=== PATIENT | female | born 1980 | race Caucasian/White ===

== ENCOUNTER 2017-08-25 23:24 | Emergency (ER) | payer MEDICAID ==
[~2017-08-25] VITALS: Ht 165.1 cm; Wt 85.0 kg
[2017-08-26 00:10] VITALS: BP 146/56
[2017-08-26] MEDS ORDERED: ACETAMINOPHEN 325MG TABLET PO ONE (01:15)
[2017-08-26 02:30] LABS: HEMATOCRIT. 34.1 % (36.0-48.0); HEMOGLOBIN. 11.6 g/dL (12.0-16.0); MEAN CORPUSCULAR HEMOGLOBIN 29.7 pg (28.0-32.0); MEAN CORPUSCULAR VOLUME 87.2 fL (81.0-99.0); MEAN PLATELET VOLUME 7.8 fl (7.4-10.4); PLATELET 278 x1000/uL (130-400); RED BLOOD CELL COUNT 3.91 mill/uL (4.2-5.4); RED CELL DISTRIBUTION WIDTH 12.5 % (11.6-14.6)
[2017-08-26 02:31] LABS: CHLORIDE 102 mEq/L (98-107)
[2017-08-26 02:33] LABS: HCG SCREEN POSITIVE
[2017-08-26 02:40] LABS: CARBON DIOXIDE 24 mEq/L (21-32)
[2017-08-26 04:13] LABS: PLATELET ESTIMATE NORMAL
[2017-08-26 04:58] LABS: CLARITY URINE CLEAR (CLEAR); COLOR URINE DARK YELLOW (YELLOW); GLUCOSE URINE NEGATIVE (NEGATIVE); KETONES URINE TRACE (NEGATIVE); LEUKOCYTE ESTERASE URINE NEGATIVE (NEGATIVE); NITRITE URINE NEGATIVE (NEGATIVE); OCCULT BLOOD URINE NEGATIVE (NEGATIVE); PROTEIN URINE NEGATIVE (NEGATIVE); SPECIFIC GRAVITY URINE 1.031 (1.005-1.030)
== END 2017-08-26 04:59 | disposition left against medical advice (07) ==
LOC: ER 23:27
DX: O26.891 Other specified pregnancy related conditions, first trimester (principal); R10.2 Pelvic and perineal pain; O99.341 Other mental disorders complicating pregnancy, first trimester; F32.9 Major depressive disorder, single episode, unspecified; F41.9 Anxiety disorder, unspecified; Z3A.08 8 weeks gestation of pregnancy; Z88.0 Allergy status to penicillin
CPT/HCPCS: 36415; 71010; 76801; 80053; 81003; 84702; 84703; 85025; 86850; 86870; 86900; 93005; 99285

== ENCOUNTER 2024-12-12 23:27 | Emergency (ER) | payer SELFPAY ==
[~2024-12-12] VITALS: Ht 180.3 cm; Wt 100.0 kg
[2024-12-12 23:41] VITALS: TEMP 98.9; O2SAT 96
[2024-12-13] MEDS: MORPHINE SULFATE 4 MG/ML INJ (FOR IV/IM USE) IM ONE (00:34)
[2024-12-13] MEDS: ACETAMINOPHEN 325MG TABLET PO ONE (00:40)
[2024-12-13] MEDS ORDERED: HYDR-4001 MT ×2 (01:44→01:46)
[2024-12-13 01:57] LABS: HCG SCREEN NEGATIVE
[2024-12-13 02:12] VITALS: BP 132/85; PULSE 96; RESP 15; O2SAT 98
== END 2024-12-13 02:12 | disposition home or self-care (01) ==
LOC: ER 23:37
DX: S82.62XA Displaced fracture of lateral malleolus of left fibula, initial encounter for closed fracture (principal); R03.0 Elevated blood-pressure reading, without diagnosis of hypertension; Z88.0 Allergy status to penicillin; X50.1XXA Overexertion from prolonged static or awkward postures, initial encounter; Y93.89 Activity, other specified; Y92.89 Other specified places as the place of occurrence of the external cause; Y99.8 Other external cause status
CPT/HCPCS: 29515; 99284; 84703; 73610; 96372; J2270; Z7610